=== PATIENT | female | born 1985 | race Caucasian/White ===

== ENCOUNTER 2017-05-20 01:34 | Emergency (ER) | payer MEDICAID ==
[~2017-05-20] VITALS: Ht 160 cm; Wt 61.0 kg
[2017-05-20] MEDS ORDERED: ACETAMINOPHEN 325MG TABLET PO ONE (04:30)
[2017-05-20] MEDS ORDERED: LIDOCAINE HCL/EPINEPHRINE 1%-EPI 1:100,000 50 ML VIAL INFIL SCH (04:30)
[2017-05-20] MEDS ORDERED: LIDOCAINE HCL/EPINEPHRINE 1%-EPI 1:100,000 30 ML VIAL INFIL ONE (04:30)
[2017-05-20 06:08] VITALS: BP 113/79
== END 2017-05-20 06:18 | disposition home or self-care (01) ==
LOC: ER 01:59
DX: K02.9 Dental caries, unspecified (principal)
CPT/HCPCS: 81025; 99283; J3490; Z7610